=== PATIENT | female | born 1990 | race Caucasian/White ===

== ENCOUNTER 2019-02-24 17:18 | Emergency (ER) | payer OTHER ==
[~2019-02-24] VITALS: Ht 162.6 cm; Wt 63.6 kg
[~2019-02-24 17:18] MED LIST: MACROBID 1100 MG/CAP PO; MOTRIN 600600 MG/TAB PO; NO HOME MEDICATIONS; NORCO 325 MG-51 TAB PO; PERCOCET 325 MG1 TA2 PO; PHENERGAN 25 TA25 MG PO; PREDNISONE20 MG PO; PRENATAL1 TA1 PO; XANAX 0.5MG0.5 MG PO
[2019-02-24 17:41] VITALS: BP 125/69; PULSE 118; TEMP 98.2
== END 2019-02-24 19:28 | disposition left against medical advice (07) ==
LOC: COL.ER 17:18
DX: R50.9 Fever, unspecified (principal)